=== PATIENT | male | born 1990 | race African-American/Black ===

== ENCOUNTER 2021-01-27 03:48 | Emergency (ER) | payer OTHER ==
[~2021-01-27] VITALS: Ht 172.7 cm; Wt 78.2 kg
[2021-01-27] MEDS ORDERED: PANTOPRAZOLE 40MG VIAL (C9113 PER 1) IV ONE (07:35)
[2021-01-27] MEDS ORDERED: NS 1,000 ML IV ONE ×2 (07:35)
[2021-01-27] MEDS ORDERED: KETOROLAC 30 MG/ML 1ML VIAL IV ONE (07:35)
[2021-01-27] MEDS ORDERED: ONDANSETRON 4MG/2ML VIAL IV ONE (07:35)
[2021-01-27 08:05] LABS: BASO % 0.2 % (0.0-1.0); EOS % 0.2 % (0.0-3.0); HEMATOCRIT 43.6 % (42.0-52.0); HEMOGLOBIN 14.2 g/dl (13.5-17.5); LYMPH % 18.8 % (24.0-44.0); MEAN CORPUSCULAR HEMOGLOBIN 26.2 pg (27.0-33.0); MEAN CORPUSCULAR HGB CONC 32.6 g/dl (32.0-36.5); MEAN CORPUSCULAR VOLUME 80.4 fl (80.0-96.0); MONO # 0.3 10^3/uL (0.0-0.8); MONO % 5.7 % (2.0-8.0); NEUTROPHILS # 3.9 10^3/uL (1.5-8.5); NEUTROPHILS % 74.9 % (36.0-66.0); PLATELET COUNT, AUTOMATED 194 10^3/uL (150-450); RED BLOOD COUNT 5.42 10^6/uL (4.30-6.10); WHITE BLOOD COUNT 5.3 10^3/uL (4.0-10.0)
[2021-01-27 08:13] VITALS: BP 113/69
[2021-01-27] MEDS: GASTROGRAFIN SOLUTION 30ML PO SCH ×2 (08:16→08:55)
[2021-01-27 08:45] LABS: ALBUMIN 3.7 GM/DL (3.2-5.2); BILIRUBIN,DIRECT 0.4 MG/DL (0.0-0.2); BILIRUBIN,TOTAL 1.7 MG/DL (0.2-1.0); TOTAL PROTEIN 7.3 GM/DL (6.4-8.2)
--- NOTE | 2021-01-27 09:13 | REP ---
INDICATION: RUQ pain COMPARISON: None. TECHNIQUE: Real time leigh scale ultrasound examination using curved array transducer. FINDINGS: Liver and pancreas are normal in contour, size, and echogenicity without focal hepatic or pancreatic lesions identified. The gallbladder is normal and without gallstones, wall thickening, or pericholecystic fluid. No biliary ductal dilatation is appreciated and the common bile duct measures 2.7 mm diameter. Right kidney is normal in reniform shape without hydronephrosis and measures 10.6 x 6.6 x 4.0 cm. No ascites in the visualized right upper quadrant. IMPRESSION: Normal limited right upper quadrant ultrasound <Electronically signed by Syd Chicas > 01/27/21 [id number]
[2021-01-27] MEDS ORDERED: ISOVUE-370 76% 100ML VIAL As Ordered ONE (09:43)
--- NOTE | 2021-01-27 10:45 | REPVR ---
PROCEDURE INFORMATION: Exam: CT Abdomen And Pelvis With Contrast Exam date and time: 01/27/2021 9:56 AM Age: 30 years old Clinical indication: Abdominal pain; Generalized TECHNIQUE: Imaging protocol: Computed tomography of the abdomen and pelvis with contrast. Radiation optimization: All CT scans at this facility use at least one of these dose optimization techniques: automated exposure control; mA and/or kV adjustment per patient size (includes targeted exams where dose is matched to clinical indication); or iterative reconstruction. Contrast material: ISOVUE 370; Contrast volume: 100 ml; Contrast route: INTRAVENOUS (IV); Other contrast: Oral, GASTROGRAPHIN, 10ML GASTRO TO 290H20 X 2; COMPARISON: GALLBLADDER US 01/27/2021 8:38 AM FINDINGS: Liver: 7 mm subcapsular hyperenhancing focus in the left hepatic lobe. This likely represents a flash fill hemangioma. Gallbladder and bile ducts: Normal. No calcified stones. No ductal dilation. Pancreas: Normal. No ductal dilation. Spleen: Normal. No splenomegaly. Adrenal glands: Normal. No mass. Kidneys and ureters: 4 mm left renal cortical hypodensity is too small to definitively characterize, but likely represents a cyst. No follow-up imaging is recommended. No hydronephrosis. Stomach and bowel: Unremarkable. No obstruction. No mucosal thickening. Appendix: No evidence of appendicitis. Intraperitoneal space: Unremarkable. No free air. No significant fluid collection. Vasculature: Unremarkable. No abdominal aortic aneurysm. Lymph nodes: Unremarkable. No enlarged lymph nodes. Urinary bladder: Unremarkable as visualized. Reproductive: Unremarkable as visualized. Bones/joints: Minimal right sacroiliac joint DJD. Minimal bilateral hip joint DJD. Soft tissues: Unremarkable. IMPRESSION: No acute abnormality. COMMENTS: Consistent with the [employer]'s Incidental Findings Committee white paper (J Am Simin Radiol 2018): Any incidental renal lesion less than 1 cm or classified as too small to characterize, or any incidental cystic renal lesion characterized as simple-appearing, is likely benign. No follow-up imaging is recommended for these lesions per consensus recommendations based on imaging criteria. Electronically signed by: Neena Holder On 01/27/2021 10:45:15 AM
[2021-01-27] MEDS ORDERED: ZOFR4TAB16 PO (10:50)
== END 2021-01-27 11:05 | disposition home or self-care (01) ==
LOC: M ED 03:48
DX: R10.9 Unspecified abdominal pain (principal); R11.2 Nausea with vomiting, unspecified; B34.8 Other viral infections of unspecified site
CPT/HCPCS: 36415; 74177; 76705; 80047; 80076; 83605; 83690; 85025; 87505; 96361; 96374; 96375; 99284; C9113; J1885; J2405; Q9963; Q9967